=== PATIENT | male | born 1990 | race Two or more races ===

== ENCOUNTER 2021-05-12 08:00 | Outpatient (CLI) | payer OTHER | END 2021-05-12 08:30 | disposition home or self-care (01) | LOC: PPH VACUNA 08:00 | PROVIDERS: ATTEND Emergency Medicine Pediatric Emergency Medicine | DX: Z23 Encounter for immunization (principal) ==

== ENCOUNTER 2021-12-28 17:35 | Emergency (ER) | payer OTHER ==
[~2021-12-28] VITALS: Ht 165.1 cm; Wt 83.5 kg
== END 2021-12-28 20:34 | disposition home or self-care (01) ==
LOC: ER 17:35
DX: S39.012A Strain of muscle, fascia and tendon of lower back, initial encounter (principal)